=== PATIENT | female | born 1990 | race Caucasian/White ===

== ENCOUNTER 2024-12-09 10:50 | Emergency (ER) | payer OTHER, SELFPAY ==
--- OUTSIDE RECORDS SUMMARY | 2024-12-09 10:52 | XMS_ITS | Clinical Summary ---
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 1 Device 07/12/19 20 Active dextroamphetamine -amphetamine (Adderall XR) 15 mg Extended-Release capsuleIndication s:Attention deficit hyperactivity disorder (ADHD), predominantly inattentive type Take 1 Capsule (15 mg) by mouth once daily. 30 Capsule 12/03/19 25 025 Active dextroamphetamine -amphetamine (Adderall XR) 15 mg Extended-Release capsuleIndication s:Attention deficit hyperactivity disorder (ADHD), predominantly inattentive type Take 1 Capsule (15 mg) by mouth once daily. 30 Capsule 01/02/20 25 Active dextroamphetamine -amphetamine (AdderalL) 5 mg tabletIndications :Attention deficit hyperactivity disorder (ADHD), predominantly inattentive type Take 1 Tablet (5 mg) by mouth once daily. 30 Tablet 12/03/19 25 025 Active dextroamphetamine -amphetamine (AdderalL) 5 mg tabletIndications :Attention deficit hyperactivity disorder (ADHD), predominantly inattentive type Take 1 Tablet (5 mg) by mouth once daily. 30 Tablet 01/02/20 25 Active dextroamphetamine -amphetamine (Adderall XR) 15 mg Extended-Release capsuleIndication s:Attention deficit hyperactivity disorder (ADHD), predominantly inattentive type Take 1 Capsule (15 mg) by mouth once daily. 30 Capsule 11/03/19 25 025 dextroamphetamine -amphetamine (AdderalL) 5 mg tabletIndications :Attention deficit hyperactivity disorder (ADHD), predominantly inattentive type Take 1 Tablet (5 mg) by mouth once daily. 30 Tablet 11/03/19 025 Active Problems Problem Noted Date Diagnosed Date Recurrent UTI 11/02/2024 Pap smear for cervical cancer screening 08/31/19 24 Overview (08/31/2023): 08/2023 NIL/HPV Negative Plan: HPV-based testing due in 5 years Smoker 11/13/2013 Adjustment disorder with mixed anxiety and depre ssed mood 01/20/2010 Anxiety disorder 02/29/2008 ADHD 01/13/2005 Overview (01/28/2012): Controlled substance agreement 01/28/2012 Resolved Problems Problem Noted Date Diagnosed Date Resolved Date 11/03/2018 12/03/2021 Overview (04/17/2019): Component Latest Ref Rng & Units 04/10/2019 Vaginal/Rectal OB Strep B PCR Negative Estimated Date of Delivery: 05/16/19 No LMP recorded (lmp unknown). Patient is . Last Tdap- 02/27/2019 Last Flu vaccine- 11/02/2018 Glucose (GTT) result- Component Latest Ref Rng & Units 01/30/2019 HEMOGLOBIN 12.0 - 16.0 g/dL 12.4 MCV 80 - 100 fL 94 GLUCOSE,GESTATIONAL 65 - 139 mg/dL 128 Component Latest Ref Rng & Units 02/27/2019 TREPONEMA PALLIDUM Negative Negative 20 week US: FINDINGS: Sonographic imaging demonstrates a single living intrauterine gestation. Fetus demonstrates a regular cardiac rate of 154 beats per minute. Fetus has a vertex position. The placenta lies anteriorly without evidence of placenta previa. Amniotic fluid volume appears normal. Single deepest vertical pocket: 4.4 cm. The cervix is closed and measures 3.6 cm in length. The composite ultrasound gestational age is calculated at 20 weeks 6 days with an estimated sonographic due date of 05/16/2019. The estimated weight is 369 grams which lies at the 35th %. The following biometric measurements were obtained: Biparietal diameter: 5.0 cm/21 weeks 2 days 62nd% Head circumference: 17.9 cm/20 weeks 3 days 19th% Abdominal circumference: 15.6 cm/20 weeks 6 days 41st% Femur length: 3.4 cm/20 weeks 4 days 31st% The HC/AC ratio measures: 1.14 Range (1.09-1.26) On anatomic survey, there is a normal appearance of the cerebral ventricles, cavum septi pellucidi, cisterna magna and cerebellum. The nose, lips, and facial profile appear normal. The cervical, thoracic and lumbar spine are well visualized and appear normal. There is a normal four-chamber heart view and the left and right ventricular outflow tracts appear normal. The diaphragm and stomach appear normal. The kidneys and bladder also appear normal. There is a normal three- vessel cord and cord insertion site. The four extremities appear normal. IMPRESSION: Normal OB ultrasound exam with concordance of clinical and sonographic dating. No intrinsic abnormalities noted on anatomic survey. No Known Allergies OB History Para Term AB Living 3 1 1 0 1 1 SAB TAB Ectopic Multiple Live Births 0 1 0 0 0 # Outcome Date GA Lbr Tristen/2nd Weight Sex Delivery Anes PTL Lv 3 Current 2 TAB 09/2017 ELECTIVE AB 1 Term 07/06/09 40w0d 10:00 4.39 kg (9 lb 11 oz) F Vag EPIDURAL Name: Jenny Apgar1: 9 Apgar5: 9 20 week US:Sonographic imaging demonstrates a single living intrauterine gestation. Fetus demonstrates a regular cardiac rate of 154 beats per minute. Fetus has a vertex position. The placenta lies anteriorly without evidence of placenta previa. Amniotic fluid volume appears normal. Single deepest vertical pocket: 4.4 cm. The cervix is closed and measures 3.6 cm in length. The composite ultrasound gestational age is calculated at 20 weeks 6 days with an estimated sonographic due date of 05/16/2019. The estimated weight is 369 grams which lies at the 35th %. Create lab flowsheet for OB labs- Component Latest Ref Rng & Units 10/28/2018 10/28/2018 10/28/2018 1:24 PM 1:24 PM 1:24 PM ANTIBODY SCREEN Negative Negative SPECIMEN EXPIRATION DATE/TIME 10/31/18 23:59 HEMOGLOBIN 12.0 - 16.0 g/dL 13.6 MCV 80 - 100 fL 92 RUBELLA IGG ANTIBODY Positive 1.44 HEMOGLOBIN A1C SCREENING <=6.4 % 5.0 ABORH B Rh Positive HBSAG Nonreactive Nonreactive HEPATITIS C ANTIBODY Non-Reactive Non-Reactive HIV-1/HIV-2 ANTIBODY Non-Reactive Non-Reactive TREPONEMA PALLIDUM Negative Negative Past Medical History: . Date ADHD 01/13/2005 Bronchospasm with URI Depression with anxiety Smoker 11/13/2013 Past Surgical History: . Laterality Date TONSILLECTOMY No data on file. Problems (from 10/28/18 to present) No problems associated with this episode. JENN Oleary.....11/03/2018 9:56 AM Supervision of normal first 01/11/2009 07/11/2009 TONSILLITIS - ACUTE 10/22/2004 02/28/19 09 CONJUNCTIVITIS 01/13/2005 Encounters Date Type Department Care Team Description 11/03/2024 Nurse Triage [facility] [address] [place] [address] Cassi Llanes MD Side Effect 11/02/2024 11:20 AM CDT Office Visit [facility] [address] [place] [address] Cassi Llanes MD Physical; Medication Management; Immunization/Injectio n 11/02/2024 Travel from Last 3 Months Immunizations Immunization Administration Dates Next Due HPV 9 (Gardasil 9) 11/02/2024 Hepatitis B (Adult) 11/02/2024 Hepatitis B (Peds) 09/28/2001,10/01/2000 Influenza A (H1N1), Inactivated 12/14/2008 Influenza, IIV3 (Age >=3 years) 10/29/2009,11/15 Influenza, IIV4 12/03/2021, 9,12/10/2015, 4 11/03/2019 MMR 10/01/2000 Td (Age >=7 Years) 10/09/2003 Tdap 02/27/2019,11/06/2009 Family History Medical History Relation Name Comments No Known Problems Daughter Jenny Cancer-prostate Father Janes Payne Unknown Mother Glaucoma Paternal Grandmother Alopecia Sister Renee Depression Sister Renee ADD / ADHD Son Grayson Speech disorder Son Grayson Relation Name Status Comments Daughter Jenny Alive Father Janes Payne Maternal Grandfather Maternal Grandmother Mother Paternal Grandfather Paternal Grandmother Sister Renee Alive Son Grayson Alive Social History Tobacco Use Types Packs/Day Years Used Date Smoking Tobacco: Every Day Cigarettes 0.5 18.8 Started: 02/08/2006 Smokeless Tobacco: Never Tobacco Cessation:Ready to Q uit: No; Counseling Given: Yes Alcohol Use Standard Drinks/Week Comments Not Currently 0 (1 standard drink = 0.6 oz pur e alcohol) PHQ-2 Answer Date Recorded PHQ-2 TOTAL SCORE 0 07/04/2024 Social Connections Answer Date Recorded Do you often feel lonely or isolated from those around you? 0 08/23/2023 Alcohol Use Answer Date Recorded How often do you have a drink containing alcohol ? 1 11/02/2024 How many drinks containing a lcohol do you have on a typical day when you are drinking? 0 11/02/2024 How often do you have five or more drinks on one occasion? 0 11/02/2024 Financial Resource Strain Answer Date R ecorded Difficulty of Paying Living Expenses 3 08/23/2023 Difficulty of Paying Living Expenses Not on file 08/23/2023 Food Insecurity Answer Date Recorded Do you worry your food will run out before you are able to buy more? 1 08/23/2023 Transportation Needs Answer Date Record ed Does lack of transportation keep you from medica l appointments? 1 08/23/2023 Does lack of transportation keep you from work, meetings or getting things that you need? 1 08/23/2023 Housing Stability Answer Date Recorded What is your housing situation today? 1 08/23/2023 Utilities Answer Date Recorded Do you have trouble paying f or utilities (for example, heat, electricity, water, phone)? 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 Not on file Not on file Not on file Obstetrics History Para Term AB IAB SAB Ectopic Multiple Livin g Live Births 4 2 2 2 2 1 1 Date Outcome GA Total Labor Labor/2nd/3rd Weight Sex Type Anes PTL Ivelisse A1 A5 Name Clin 2009 Term 40w 0d 10h 00m/ 4.39 kg (9 lb 11 oz) F Vag Epidur al 9 9 Jenny Riple y 2016 IAB 8 IAB ELECTI VE AB 2019 Term 39w 2d 6h 00m 3.88 kg (8 lb 9 oz) M Vag Epidur al N Livin g Grayson Complications:None Delivery Location:[facility] Last Filed Vital Signs Vital Sign Reading Time Taken Comments Blood Pressure 136/82 11/02/2024 11:26 AM CDT Pulse 116 11/02/2024 11:26 AM CDT Temperature 36.7 C (98 F) 10/01/2022 12:30 AM CDT Respiratory Rate 18 10/01/2022 12:3 0 AM CDT Oxygen Saturation 99% 11/02/2024 11: 26 AM CDT Inhaled Oxygen Concentration - - Weight 59.3 kg (130 lb 11.2 oz) 025 11:26 AM CDT Height 169 cm (5' 6.54) 11/02/2024 11: 26 AM CDT Body Mass Index 20.76 11/02/2024 11:26 AM CDT Plan of Treatment Health Maintenance Due Date Last Done Comments Pneumococcal series for age 6-49 (1 of 2 - PCV) 05/30/2007 Influenza Vaccine (#1) 2024 , 11/02/2018, 12/10/2015, Additional history exists HPV series for age 9-45 (2 - 3-dose SCDM series) 11/30/2024 11/02/2024 Depression screening for age 12+ 07/04/2025 07/04/2024, 08/24/2023, 08/23/2023, Additional history exists BMI (ht and wt on same day) for age 18+ 11/02/2025 11/02/2024, 07/04/2024, 08/23/2023, Additional history exists Pap test for age 21-65 08/22/2028 , 08/23/2023, 07/12/2019, Additional history exists Tetanus booster 02/27/2029 02/27/2019, 10/10, 10/09/2003 RSV vaccine for adults or (1 - 1-dose 75+ series) 05/30/2063 HIV for age 15-65 Completed 10/28/2018, , 07/21/2011, Additional history exists Hepatitis C screening for ag e 18-79 Completed 10/28/2018, 12/29/2011, 04/16/2011, Additional history exists Hepatitis B series for 19+ Completed 11/02, 09/28/2001, 10/01/2000 Procedures Procedure Name Priority Date/Time Associated Diagnosis Comments URINE CULTURE Routine 11/02/2024 11:48 AM CDT UTI (urinary tract infection), uncomplicated URINE CULTURE INDICATED ([facility] REFLEX ONLY) Routine 11/02/2024 11:48 AM CDT UTI (urinary tract infection), uncomplicated UA DIP W/REFLEX TO CULTURE ([facility]) Routine 11/02/2024 11:48 AM CDT UTI (urinary tract infection), uncomplicated COMPLIANCE DRUG ANALYSIS Routine 11/02/2024 11:48 AM CDT Attention deficit hyperactivity disorder (ADHD), predominantly inattentive type DEPARTMENT SPECIALIST THIN PREP PAP SCREEN IMAGED Routine 08/23/2023 3:30 PM CDT Pap smear for cervical cancer screening ANTI HIV 1/2 Routine 10/28/2018 1:24 PM CDT Encounter for supervision of normal first in first trimester (HC) ANTI HCV Routine 10/28/2018 1:24 PM CDT Encounter for supervision of normal first in first trimester (HC) from Last 3 Months or Most Recently Relevant to Health Maintenance Results * (ABNORMAL) UA Dip w/Reflex to Culture ([facility]) [[id number]] (11/02/2024 11:48 AM CDT) COLOR YELLOW YELLOW 11/02/2024 12:05 PM CDT [facility] APPEARANCE CLEAR CLEAR 11/02/2024 12:05 PM CDT [facility] SPECIFIC GRAVITY 1.010 1.001 - 1.035 11/02/2024 12:05 PM CDT [facility] PH 6.5 5.0 - 8.0 11/02/2024 12:05 PM CDT [facility] GLUCOSE NEGATIVE NEGATIVE 11/02/2024 12:05 PM CDT [facility] BILIRUBIN NEGATIVE NEGATIVE 11/02/2024 12:05 PM CDT [facility] KETONES NEGATIVE NEGATIVE 11/02/2024 12:05 PM CDT [facility] OCCULT BLOOD TRACE(A) NEGATIVE 11/02/2024 12:05 PM CDT [facility] PROTEIN NEGATIVE NEGATIVE 11/02/2024 12:05 PM CDT [facility] NITRITE NEGATIVE NEGATIVE 11/02/2024 12:05 PM CDT [facility] LEUKOCYTE ESTERASE 1+(A) NEGATIVE 11/02/2024 12:05 PM CDT [facility] Urine URINE SPECIMEN / Unknown Non-Blood / Unknown 11/02/2024 11:48 AM CDT 11/02/2024 11:48 AM CDT Cassi Llanes MD URINE Final R esult [facility] [address] [address], [place] [phone] [facility] [address] [place] [address], [place] [phone] * URINE CULTURE INDICATED ([facility] REFLEX ONLY) (11/02/2024 11:48 AM CDT) URINE CULTURE INDICATED SEE NOTE 11/02/2024 12:05 PM CDT [facility] Comment:CULTURE INDICATED - RESULTS TO FOLLOW Urine URINE SPECIMEN / Unknown Non-Blood / Unknown 11/02/2024 11:48 AM CDT 11/02/2024 11:48 AM CDT us Cassi Llanes MD URINE Final R esult [facility] [place] [address] [place] [address], [place] [phone] * (ABNORMAL) COMPLIANCE DRUG ANALYSIS (11/02/2024 11:48 AM CDT) 6-MONOACETYL MORPHINE NEG NEG ng/mL 11/06/2024 11:54 AM T [facility] AMPHETAMINE URINE POS(A) <=500 ng/mL 11/06/2024 11:54 AM T [facility] BARBITURATE URINE NEG <=200 ng/mL 11/06/2024 11:54 AM T [facility] BENZODIAZEPINE URINE NEG <=100 ng/mL 11/06/2024 11:54 AM T [facility] BUPRENORPHRINE URINE NEG <=5 ng/mL 10/10 11:54 AM T [facility] COCAINE METAB URINE NEG <=300 ng/mL 11/06/2024 11:54 AM T [facility] ETHYLGLUCURONIDE URINE NEG <=250 ng/mL 11/06/2024 11:54 AM [facility] FENTANYL URINE NEG <=5 ng/mL 11/06/2024 11:54 AM T [facility] METHADONE URINE NEG <=300 ng/mL 11/06/2024 11:54 AM T [facility] OPIATES URINE NEG <=300 ng/mL 11/06/2024 11:54 AM [facility] OXYCODONE URINE NEG <=100 ng/mL 11/06/2024 11:54 AM T [facility] PROPOXYPHENE URINE NEG <=300 ng/mL 11/06/2024 11:54 AM [facility] THC 50 URINE POS(A) <=50 ng/mL 11/06/2024 11:54 AM [facility] TRAMADOL NEG <=200 ng/mL 11/06/2024 11:54 AM CDT [facility] PH URINE 6.4 5.0 - 7.0 11/06/2024 11:54 AM CDT [facility] CREAT UR 15(L) >=20 mg/dL 11/06/2024 11:54 AM CDT [facility] MASS SPECTROMETRY See Below 025 11:54 AM T [facility] Comment:Amphetamine present. Urine URINE SPECIMEN / Unknown Non-Blood / Unknown 11/02/2024 11:48 AM CDT 11/02/2024 11:48 AM CDT [facility] - 11/06/2024 11:54 AM CDT Current Outpatient Medications: dextroamphetamine-amphetamine (Adderall XR) 15 mg Extended-Release capsule, Take 1 Capsule (15 mg) by mouth once daily. dextroamphetamine-amphetamine (Adderall XR) 15 mg Extended-Release capsule, Take 1 Capsule (15 mg) by mouth once daily. dextroamphetamine-amphetamine (AdderalL) 5 mg tablet, Take 1 Tablet (5 mg) by mouth once daily. dextroamphetamine-amphetamine (AdderalL) 5 mg tablet, Take 1 Tablet (5 mg) by mouth once daily. levonorgestrel intrauterine device (MIRENA) 20 mcg/24 hours (5 yrs) 52 mg IUD, Inject 1 Device intrauterine every 5 years. No current facility-administered medications for this visit. As of 11/02/2024 Release to patient->Immediate us Cassi Llanes MD URINE Final R esult [facility] [address] [facility] [address] [place] [address], * URINE CULTURE (11/02/2024 11:48 AM CDT) CULTURE, URINE, ROUTINE SEE NOTE 11/03/2024 9:54 PM CDT [facility] Comment: CULTURE, URINE, ROUTINE Micro Number: [id number] Test Status: Final Specimen Source: Urine Specimen Quality: Adequate Result: Mixed genital navin isolated. These superficial bacteria are not indicative of a urinary tract infection. No further organism identification is warranted on this specimen. If clinically indicated, recollect clean-catch, mid-stream urine and transfer immediately to Urine Culture Transport Tube. Urine URINE SPECIMEN / Unknown Non-Blood / Unknown 11/02/2024 11:48 AM CDT 11/02/2024 11:48 AM CDT Cassi Llanes MD MICROBIOLOGY Final R esult [facility] [address] [place] [address], * DEPARTMENT SPECIALIST THIN PREP PAP SCREEN IMAGED (08/23/2023 3:30 PM CDT) Case Report Gynecologic Cytology Report Case: [id number] Authorizing Provider: Cassi Llanes MD Collected: 08/23/2023 1530 Ordering Location: [facility] Received: 08/23/2023 1621 Clinic First Screen: Lisa Wilkerson Specimen: DEPARTMENT SPECIALIST ThinPrep Vial Screening, Cervical 08/30/2023 2:58 PM CDT [facility] ENTRAL [facility]OR[facility] INTERPRETATION/ RESULT NEGATIVE FOR INTRAEPITHELIAL LESION OR MALIGNANCY (NIL) (none) 08/30/2023 2:58 PM CDT [facility] ENTRAL LABORATORY at 1458 CDT SPECIMEN ADEQUACY Satisfactory for evaluation Endocervical component present 08/30/2023 2:58 PM CDT [facility] HPV REQUEST HPV and PAP 08/30/2023 2:58 PM CDT [facility] Date of LMP Hormonally suppressed 08/30/2023 2:58 PM CDT [facility] Last Pap Date 07/12/19 08/30/2023 2:58 PM CDT [facility] Last Pap Result NIL 2:58 PM CDT [facility] Abnormal Pap or Lawtey Bx in last 5 years No 08/30/2023 2:58 PM CDT [facility] Menstrual Status Hormonally Suppressed 08/30/2023 2:58 PM CDT [facility] Lawtey Bx Done Today No 08/30/2023 2:58 PM CDT [facility] Additional Information None given 08/30/2023 2:58 PM CDT [facility] Comment: Cytology is screened at [facility] - [address], [place] [address] and [facility] - [address], [place] [address] and [facility] - [address] [place] [address] Interpreted at [facility] - [address], [place] [address] Automated Review Successful 08/30/2023 2:58 PM CDT [facility] Comment:Specimen processed s uccessfully by automated brick siding applicator device, ThinPrep Imaging System, [employer] ANCILLARY TESTING DEPARTMENT SPECIALIST HPV Ordered, Please see separate report 08/30/2023 2:58 PM CDT [facility] Note The pap test is a screening technique, not a diagnostic procedure. It is used primarily to screen for squamous cancers and precursor lesions. Published studies have shown that it is subject to both false negative and false positive results. The pap test should not be used as the sole means to diagnose or exclude pre-malignant and malignant lesions. 08/30/2023 2:58 PM CDT [facility] Other (Cervical) Non-Blood / Unknown 08/23/2023 3:30 PM CDT 08/23/2023 4:21 PM CDT us Cassi Llanes MD PATHOLOGY/CYTOLOGY Lisa stevens Result [facility] [address] [place] [address], [place] * ANTI HCV (10/28/2018 1:24 PM CDT) HEPATITIS C ANTIBODY Non-React aleja Non-React aleja 10/28/2018 10:14 PM CDT [facility] Comment:Antibodies to HCV no t detected; does not exclude the possibility of exposure to HCV. Blood BLOOD SPECIMEN / Unknown Venipuncture / Unknown 10/28/2018 1:24 PM CDT 10/28/2018 1:24 PM CDT Nora KING SEND OUTS Final R esult [facility] [address] [place] [address], * ANTI HIV 1/2 (10/28/2018 1:24 PM CDT) Pathologist [facility] HIV-1/HIV-2 ANTIBODY Non-Reacti ve Non-Reacti ve 10/28/2018 10:11 PM CDT [facility] TR[facility] Comment:HIV-1 p24 and HIV-1/ HIV-2 Ab not detected. Blood BLOOD SPECIMEN / Unknown Venipuncture / Unknown 10/28/2018 1:24 PM CDT 10/28/2018 1:24 PM CDT Nora KING SEND OUTS Final R esult [facility] [address] [place] [address], from Last 3 Months or Most Recently Relevant to Health Maintenance Insurance [facility] [employer] on file Care Teams [employer] Draftsp[employer] Relationship Specialty [place] [address] [place] [address] PCP - General Family Practice 04/06/17
[2024-12-09 11:04] VITALS: BP 168/106; PULSE 133; RESP 18; TEMP 37.1; O2SAT 98; BMI 18.8
[2024-12-09 11:24] LABS: Appearance Urine Clear (Clear)
--- NOTE | 2024-12-09 11:35 | ED_ITS ---
HPI - General Adult General Chief complaint: Urogenital Problems, Female Stated complaint: difficulty urinating Time Seen by Provider: 12/09/24 11:12 Source: patient Mode of arrival: ambulatory Limitations: no limitations History of Present Illness HPI narrative: 34-year-old female coming in today complaining of increased urinary frequency. She feels like she can not completely empty her bladder. She denies any dysuria, no blood in her urine. No change in odor or color of the urine. Patient does have a history of recurrent UTIs. Last UTI was approximately 2 or 3 weeks ago. But she tells me that her urine culture was negative. She states that for quite some time now, several weeks or more she has had a difficult time starting her urine. She feels the need to urinate and then really has to think about it for several seconds to a minute before urine comes out. Patient denies any fevers or chills. No nausea or vomiting. Patient is quite concerned because last night she felt a bulge in the vaginal area. It is nontender. Patient has had 2 vaginal deliveries of 9 lb babies. Related Data Previous Rx's ?Medication ?Instructions ?Recorded benzonatate 100 mg capsule 100 mg PO BID-TID PRN cough #30 08/18/21 caps Allergies Allergy/AdvReac Type Severity Reaction Status Date / Time No Known Drug Allergies Allergy Verified 08/18/21 17:17 Review of Systems Status of ROS: Reports: 6 or more systems reviewed and unremarkable except as noted in History and below [facility] Medical History URI (upper respiratory infection) ?J06.9 - Acute upper respiratory infection, unspecified (ICD-10) Social History service: No Exam Narrative: Exam Narrative: Well-nourished well-developed patient , very anxious and tearful. Alert and oriented. Answers questions appropriately. Patient speaks in full sentences without needing to catch her breath. HEENT: Normocephalic atraumatic. Pupils are equally round reactive to light. Extraocular muscles are intact. Conjunctivae are moist without any icterus noted. Moist mucous membranes. Skin: Exposed skin is well perfused without any obvious rashes. Const: Vital Signs, click to edit/add: Vital Signs - 24 hr 12/09/24 11:04 Temperature 98.7 F Pulse Rate [Right Pulse Oximeter] 133 H Respiratory Rate 18 Blood Pressure [Ri ght Upper Arm] 168/106 H Pulse Oximetry 98 Oxygen Delivery Me thod Room Air Course Course ED Course: Did check a UA today which was unremarkable. Postvoid bladder scan showed approximately 160 mL. Of note, patient quite tachycardic upon arrival at 133. Did go down to 113. Patient states that this is normal for her. She states that she has 1. anxiety and 2. is on Adderall and that coming to the doctor always causes her pulse to spike. Vital Signs Vital signs: Initial Vital Signs Temperature 98.7 F 12/09/24 11:04 Temperature Source Temporal Artery Scan 12/09/24 11:04 Pulse Rate 133 H 12/09/24 11:04 Respiratory Rate 18 12/09/24 11:04 Blood Pressure 168/106 H 12/09/24 11:04 Blood Pressure Mean 126 H 12/09/24 11:04 Blood Pressure Position Sitting 12/09/24 11:04 Pulse Oximetry 98 12/09/24 11:04 Oxygen Delivery Method Room Air 12/09/24 11:04 Vital Signs Temperature 98.7 F 12/09/24 11:04 Pulse Rate 133 H 12/09/24 11:04 Respiratory Rate 18 12/09/24 11:04 Blood Pressure 168/106 H 12/09/24 11:04 Pulse Oximetry 98 12/09/24 11:04 Oxygen Delivery Method Room Air 12/09/24 11:04 Temperature 98.7 F 12/09/24 11:04 Pulse Rate 133 H 12/09/24 11:04 Respiratory Rate 18 12/09/24 11:04 Blood Pressure 168/106 H 12/09/24 11:04 Pulse Oximetry 98 12/09/24 11:04 Oxygen Delivery Method Room Air 12/09/24 11:04 Medical Decision Making MDM Narrative Medical decision making narrative: 34-year-old female with difficulty emptying her bladder, difficulty starting urination. [place] a bulge in the vaginal area. We discussed the possibility of a uterine verses bladder prolapse into the vaginal canal. He recommend patient follow-up with hot stick worker for further management. Patient reassured that this is not a medical emergency. Lab Data Lab results reviewed: Yes I reviewed the patient's lab results Labs: Lab Results 12/09/24 Range/Units 11:15 Urine Color Yellow (Yellow) Urine Appearance Clear (Clear) Urine pH 5.5 (5.0-8.5) Ur Specific [place] 1.010 (1.000-1.030) Urine Protein Negative (Negative) Urine Glucose (UA) Negative (Negative) Urine Ketones Negative (Negative) Urine Blood Trace-lysed A (Negative) Urine Nitrite Negative (Negative) Urine Bilirubin Negative (Negative) Urine Urobilinogen 0.2 (0.2-1.0) Ur Leukocyte Esterase Negative (Negative) Urine RBC 0-2 (0-2) Urine WBC 0-2 (0-5) Ur Squamous Epith Cells Moderate A (None-Few) Urine Bacteria None (None) Discharge Plan 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 You will likely experiencing a prolapse of the bladder or uterus into the vaginal canal. I do recommend that you follow-up with a hot stick worker to determine exact diagnosis and next steps in treatment. [facility] will be provided to you today. Prescriptions: No Action benzonatate 100 mg capsule 100 mg PO BID-TID PRN (Reason: cough) Qty: 30 0RF Follow Up/Referrals: Cristina Mendez DO [Primary Care Provider, Family Practice] Stand Alone Forms: [facility] Info Instructions
[2024-12-09 11:46] VITALS: PULSE 113
== END 2024-12-09 11:53 | disposition home or self-care (01) ==
PROVIDERS: Emergency Provider Family Medicine; PCP Family Medicine
DX: N81.9 Female genital prolapse, unspecified (principal)
CPT/HCPCS: 81001; 99283; 99284

== ENCOUNTER 2024-12-18 15:53 | Outpatient (CLI) | payer OTHER, SELFPAY | END 2024-12-18 15:54 | disposition home or self-care (01) | LOC: NFLDREF 15:54 | PROVIDERS: PCP Family Medicine; Visit Provider Obstetrics & Gynecology | DX: R33.9 Retention of urine, unspecified (principal) | CPT/HCPCS: 87086 ==

== ENCOUNTER 2025-01-30 11:50 | Outpatient (CLI) | payer OTHER, SELFPAY | END 2025-01-30 11:51 | disposition home or self-care (01) | LOC: NFLDREF 02-03 19:54 | PROVIDERS: PCP Family Medicine; Referring Provider Family Medicine; Visit Provider Physician Assistant | DX: N39.0 Urinary tract infection, site not specified (principal) | CPT/HCPCS: 87086 ==